=== PATIENT | female | born 1950 | race African-American/Black ===

== ENCOUNTER → 2016-08-15 | Outpatient (CLI) | payer BC ==
[~2016-08-15] MED LIST: AMLO5TAB88 PO; FURO80TA3 PO; GAVISCON PO; LEVO50TA8 PO; LISI40TA4 PO; PHEN100C12 PO; ZOLP10TA6 PO
== END | disposition home or self-care (01) ==
LOC: MAMMO 12:53
PROVIDERS: ATTEND Internal Medicine
DX: Z12.31 Encounter for screening mammogram for malignant neoplasm of breast (principal); R92.0 Mammographic microcalcification found on diagnostic imaging of breast
CPT/HCPCS: G0206